=== PATIENT | female | born 1980 | race Caucasian/White ===

== ENCOUNTER 2021-10-16 10:32 | Outpatient (CLI) | payer BC, SELFPAY ==
--- OUTSIDE RECORDS SUMMARY | 2021-10-16 10:34 | XMS_ITS | Encounter Summary ---
:1980 Author Organization [facility] Address [address] [place] [address] Care Team Providers Name Role Phone Unavailable Primary Care Provider Unavailable Reason for Visit Appointment Request (Routine) - Closed Specialty Diagnoses / Procedures Referred By Contact Refer red To Contact Preventive Medicine Diagnoses COVID-19 Infection Referral ID Status Reason Start Date Expiration Date Visits Requ ested Visits Authorized [id number] Closed 03/01/2020 03/01/2021 1 1 Encounter Details Date Type Department Care Team Description 03/26/2020 Telemedicine Section of Preventive, Champ Weaver P ersonal History Of Infectious And Parasitic Disease (COVID-19) (Primary Dx); Transportation and M.D. Fatigue P ost Viral Occupational Medicine in [place], [place] [address] [place] [address] Social History Tobacco Use Types Packs/Day Years Used Date Smoking Tobacco: Never Assessed Alcohol Habits Answer Date Recorded How often do you have a drink containing alcohol? 2-4 times a month 03/25/2020 How many drinks containing alcohol do you have on a 1 or 2 03/25/2020 typical day when you are drinking? How often do you have six or more drinks on one Never 03/25/2020 occasion? Comment: Not asked Social Isolation Answer Date Recorded In a typical week, how many times do you More than three love es a week 03/25/2020 talk on the phone with family, friends, or neighbors? How often do you get together with friends Three times a wee k 03/25/2020 or relatives? How often do you attend amish or More than 4 times per year 03/25/2020 restorationism services? Do you belong to any clubs or Yes 03/25/2020 organizations such as amish groups, unions, fraternal or athletic groups, or school groups? How often do you attend meetings of the More than 4 times pe r year 03/25/2020 clubs or organizations you belong to? Are you now , , , 03/25/2020 , never or living with a partner? Physical Activity Answer Date Recorded On average, how many days per week do you engage in moderate to 5 days 03/25/2020 strenuous exercise (like walking fast, running, jogging, dancing, swimming, biking, or other activities that cause a light or heavy sweat)? On average, how many minutes do you engage in exercise at th is 30 min 03/25/2020 level? Stress Answer Date Recorded Do you feel stress - tense, restless, nervous, or anxious, N ot at all 03/25/2020 or unable to sleep at night because your mind is troubled all the time - these days? Financial Resource Strain Answer Date Recorded How hard is it for you to pay for the very basics like Not h josefa at all 03/25/2020 food, housing, medical care, and heating? Food Insecurity Answer Date Recorded Within the past 12 months, you worried that your food would Never true 03/25/2020 run out before you got money to buy more. Within the past 12 months, the food you bought just didn't N ever true 03/25/2020 last and you didn't have money to get more. Transportation Needs Answer Date Recorded In the past 12 months, has lack of transportation kept you f rom No 03/25/2020 medical appointments or from getting medications? In the past 12 months, has lack of transportation kept you f rom No 03/25/2020 meetings, work, or getting things needed for daily living? Education Answer Date Recorded What is the highest level of school Master's degree (e.g., M A, MS, 03/25/2020 you have completed or the highest Katya, MEd, ELECTRIC MOTOR REPAIR SUPERVISOR, RICH) degree you have received? Sex Assigned at Date Recorded Not on file documented as of this encounter Consult Notes Champ Weaver M.D. - 03/26/2020 1:30 PM CST This visit was conducted via telemedicine audio/video link from my office at [facility] to her home as part of the COVID-19 practice modifications. 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 Worked in the [employer] in a similar position prior to that. COVID HISTORY: She reports good general health, no medication. Previously active woman enjoying hiking, cross-country skiing, outside activities. HPI: Symptom onset 01/12 with fevers, chills, aches, pronounced fatigue, loss of taste and smell resolved within a week. Poor sleep despite the fatigue. Persistence of myalgia and profound fatigue for 3 weeks-unable to work. Began to note some tingling/heaviness in the arms and fingers toward the middle of the day and with fatigue at the end of the day she began to note substernal achiness followed by chest wall achiness in the medial pectoral region bilaterally. This was not associated with shortness of breath, presyncope, or palpitations that she was aware of. She did appropriately seek evaluation in the emergency room where they did a cardiopulmonary workup for cardiac etiology-EKG, troponins, and pulmonary CT angiography for PE. The only abnormality noted in the emergency room was a creatinine of 1.6. She does not recall that she was dehydrated at the time. She started an aspirin a day, continued good self-care including sleep (now wakes up feeling rested), healthy diet, continuing aspirin daily (325 mg), vitamin-D. Started back to work week 4. 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 This similarly seem to occur later in the day. She was able to carryout all of her work tasks appropriately but noted significant inefficiency with cognitively demanding tasks late in the day. She subsequently saw her primary care physician who repeated her creatinine and noted that it was now normal. Now, approximately 10 weeks post positive test she is getting very slowly better. Her primary symptoms now include fatigue beyond expected, mild brain fog toward the end of the day, muscle fatigue toward the end of the day, and the chest symptoms although they are a bit better. Overall she feels as though she is about 90% better. Her biggest concern is the chest symptoms and whether her body may have sustained some permanent damage. It is easier now for her to complete her work day, though she does have the muscular symptoms toward the end of the day and a little wor sening of the brain fog. Her chest symptoms seem to be more muscular fatigue than the result of cardiac demand. She has not noted racing heart, palpitations, orthostatic symptoms, or notable dyspnea on exertion. With regard tothe brain fog she is noting gradual improvement in that as well. Muscle fatigue seems to be a prominent persistent symptom. Answers for HPI/ROS submitted by the patient on 03/25/2020 Fatigue: Yes No eye issues: Yes No ENT issues: Yes Chest pain, pressure or tightness: Yes No respiratory issues: Yes No GI issues: Yes Muscle pain/stiffness: Yes No skin issues: Yes No neurologic issues: Yes No mental health issues: Yes No blood/lymph issues: Yes No urinary/reproductive issues: Yes FUNCTIONAL HISTORY: Post COVID Scale: Description Score Patient Assignment I suffer from severe limitations in my everyday life: I am not able to take care of myself and therefore I am dependent on nursing care and/or assistance from another person due to symptoms, pain, depression or anxiety. 4 I suffer from limitations in my everyday life as I am not able to perform all usual duties/activities due to symptoms, pain, depression or anxiety. I am, however, able to take care of myself without any assistance. 3 I suffer from limitations in my everyday life as I occasionally need to avoid or reduce usual duties/activities or need to spread these over time due to symptoms, pain, depression or anxiety. I am, however, able to perform all activities without any assistance. 2 I have negligible limitations in my everyday life as I can perform all usual duties/activities, although I still have persistent symptoms, pain, depression or anxiety. 1 X I have no limitations in my everyday life and no symptoms, pain, depression or anxiety related to the infection. 0 OBJECTIVE Gen: Alert, calm, cooperative. Thoughtful, responds clearly and appropriately to questions. Maintains good eye contact. Psych: No abnormalities with speech, memory, or concentration. Mood appears good. Affect full and appropriate. Skin: No pallor or cyanosis detected. Res: No audible wheezing or dyspnea. No tachypnea. ASSESSMENT / PLAN #1 Post COVID syndrome with persistent symptomatology at approximately 10 weeks We discussed our best general understanding of what is going on with body. She astutely notes that her muscular symptoms are probably a combination of deconditioning and post COVID symptoms. I agree. The return of her labs to normal, and a negative cardiac evaluation in the ED are reassuring. We discussed that this is probably the tail end of a post viral inflammatory process. Recommendation: We discussed that it is reasonable to continue her aspirin daily and supplement for 3 months or so post infection, especially in light of the fact that she still has some symptoms. Her supplement seem reasonable. We discussed the a good healthy diet also supplies nutrients in anti oxidents. She is getting adequate sleep and awakening rested. She is maintaining his circadian rhythm. She is gradually increasing her physical demands. We discussed rehab goals of sub maximal exercise, avoiding exhaustion, and working all the major muscle groups and we discussed simple exercises that she can do at home. If her symptoms are not improving after another 4 weeks or the change in character and worsen, recommend that she get back in touch with this and I would refer her to the specific specialist. We discussed things like cognitive testing and MRI of the brain but in people who are functioning at her level I have not found it to be helpful. Pt wishes to pursue local treatment options with our advice but would consider coming for visit if symptoms persist or worsen. I shared with the patient the treatment philosophy of our physical therapy based rehabilitation program. Specifically, I recommended gradual, paced increases in activity rather than pushing himself toohard. Based on her slope of recovery I told her that I anticipate she will gradually return to normal and that it is unlikely she has any worrisome damage to her organ systems. She has not had significant respiratory symptoms which is also good. She does not seem to have POTS like symptoms either. I discussed with her that if I run across any interesting new articles I will send them her way her email is [email or web address] below are some references from late summer/early fall. References: 1. SUNDEEP Johnson, O LYDIA, GAIL S, et al. The consensus statement for eoah-APSQP-77 rehabilitation. [place] journal of sports medicine. 2019Oct 2019;54(16)doi:10.1136/[id number] 2. Carpenter TJ, Sanchez B, Jasbir M, Matteo GT, Charis N, J Luis S. Physical Medicine and Rehabilitation and Pulmonary Rehabilitation for COVID-19. Am J Phys Med Rehabil. 2019;99(9):769-774. doi:10.1097/PHM.[id number] 3. GABY S. Considerations for Postacute Rehabilitation for Survivors of COVID-19. [facility] public health and surveillance. 07/15/20192019;6(2)doi:10.2196/15163 4. Wesley PM, Santosh SL, Elke R, et al. Respiratory follow-up of patients with COVID-19 pneumonia. Thorax. Oct 2019;doi:10.1136/[id number] Total time 30 minutes in direct aozp-fk-gnne, additional time in documentation. No barriers to communication identified. ATION SPECIALIST documented in this encounter Plan of Treatment Not on filedocumented as of this encounter Visit Diagnoses Diagnosis Personal History Of Infectious And Sharath itic Disease (COVID-19) - Primary Fatigue Post Viral documented in this encounter
--- OUTSIDE RECORDS SUMMARY | 2021-10-16 10:34 | XMS_ITS | Clinical Summary ---
:1980 Author Organization [facility] Address [address] [place] [address] Care Team Providers Name Role Phone Unavailable Primary Care Provider Unavailable Source Comments Patient records contain information from all sites at [facility]. For routine questions regarding patient records, call [phone] during business hours, M-F 8:00 AM - 5:00 PM Central Time. Record requests for emergency care only can be directed to [phone] at any time.[facility] Active Problems Problem Noted Date Fatigue Post Viral 03/26/2020 Personal History Of Infectious And Parasitic Disease ( COVID-19) 03/26/2020 Social History Tobacco Use Types Packs/Day Years [...] or relatives? How often do you attend restorationism or More than 4 times per year 03/25/2020 christian services? Do you belong to any clubs or Yes 03/25/2020 organizations such as restorationism groups, unions, fraternal or athletic groups, or [...] have completed or the highest Katya, MEd, TIRE BALANCER, RICH) degree you have received? Sex Assigned at Date Recorded Not on file Plan of Treatment Health Maintenance Due Date Last Done Comments Fasting Lipid Panel 1980 HIV Screening 1980 Hepatitis C Screening 1980 Mammogram 1980 Depression Screening 03/09/2021 (Annual PHQ-2) Cervical Cancer Screening 03/30/2021 03/30/2018 Influenza Vaccine (#1) 2022 12/05/2020, 12/14/2019, 12/08/2018, Additional history exists DTaP,Tdap,and Td Vaccines 08/18/2029 08/19/2019, 12/10/2011 , (10 - Td or Tdap) 04/17/2009, Additional history exists Hepatitis B Vaccines Completed 10/03/1992, 05/19/1992, 03/30/1992 COVID-19 Vaccine Completed 03/14/2021, 04/03/2020, 03/13/2020 Pneumococcal vaccine (0-64 Aged Out No lo nger eligible years) based on patient 's age to complete this topic Insurance Payer Benefit Plan / Subscriber ID Effective Dates Phone Addre ss Type Group [facility] [id number] 2018-Prese [phone] [id number] [facility] [address] [place] [address] (Home) [place] [address]
--- NOTE | 2021-10-16 10:45 | CRLHL7_ITS ---
For Patients: As a result of the Cures Act, medical imaging exams and procedure reports are released immediately into your electronic medical record. You may view this report before your referring provider. If you have questions, please contact your health care provider. BILATERAL DIAGNOSTIC MAMMOGRAM WITH COMPUTER-AIDED DETECTION AND TOMOSYNTHESIS CLINICAL HISTORY: LEFT breast lump. COMPARISON: 11/27/2020, 09/13/2019. TECHNIQUE: Digital BILATERAL mammogram in 4 projections. Computer-aided detection and tomosynthesis were used. Real-time ultrasound imaging of LEFT breast with imaging documentation. BREAST COMPOSITION: The breasts are extremely dense, which lowers the sensitivity of mammography FINDINGS: 3D CC and 3D MLO mammograms submitted BILATERALLY. Ovoid density upper-outer quadrant LEFT breast. Benign calcifications BILATERALLY. No architectural distortion or adenopathy. Targeted LEFT breast ultrasound in the area of concern performed 3 o`clock 3 cm from the nipple. In this location there is a simple circumscribed anechoic cyst with increased through transmission corresponding with the mammographic findings measuring 1.1 x 1.5 x 1.5 cm. IMPRESSION: Simple cyst LEFT breast 3 o`clock 3 cm from the nipple measuring 1.5 cm. No evidence of malignancy. RECOMMENDATIONS: Annual bilateral screening mammography. BI-RADS Category 2: Benign Results and recommendations discussed with the patient. Dictated by Malik Holcomb MD @ 10/16/2021 11:33:46 AM/kemar ROSS/Dictated by: Malik Holcomb MD @ 10/16/2021 11:33:00 AM (Electronically Signed)
--- NOTE | 2021-10-16 11:15 | CRLHL7_ITS ---
For Patients: As a result of the Century Cures Act, medical imaging exams and procedure reports are released immediately into your electronic medical record. You may view this report before your referring provider. If you have questions, please contact your health care provider. PLEASE SEE BILATERAL DIAGNOSTIC MAMMOGRAM OF SAME DAY. CRL:kemar CODY/Dictated by: Malik Holcomb MD @ 10/16/2021 11:33:00 AM (Electronically Signed)
== END 2021-10-16 10:33 | disposition home or self-care (01) ==
LOC: MAMMO 10:32
PROVIDERS: PCP Family Medicine; Visit Provider Family Medicine
DX: N63.20 Unspecified lump in the left breast, unspecified quadrant (principal); N60.02 Solitary cyst of left breast
CPT/HCPCS: 76642; 77066; G0279

== ENCOUNTER 2022-11-04 14:58 | Outpatient (CLI) | payer BC, SELFPAY ==
--- NOTE | 2022-11-04 15:00 | CRLHL7_ITS ---
For Patients: As a result of the Cures Act, medical imaging exams and procedure reports are released immediately into your electronic medical record. You may view this report before your referring provider. If you have questions, please contact your health care provider. BILATERAL SCREENING MAMMOGRAM WITH COMPUTER-AIDED DETECTION AND TOMOSYNTHESIS TECHNIQUE: CC and MLO views were obtained. These mammographic images have been obtained using full-field digital technique. These mammographic images were interpreted with the benefit of computer-aided detection. Breast Tomosynthesis was used in this interpretation. COMPARISON FILM: 10/16/21, 11/27/20, 09/23/19. FINDINGS: The breasts are extremely dense, which lowers the sensitivity of mammography IMPRESSION: There is no radiographic evidence for malignancy. ASSESSMENT: BI-RADS Category 2: Benign RECOMMENDATION: Routine screening mammogram in 1 year. A lay language report of this examination will be provided to the patient. Malik Holcomb M.D. Diagnostic Radiologist [email or web address] JERICHO/maria del carmen Transcribed: 3:10 p.muan joyce/Dictated by: Malik Holcomb MD @ 11/05/2022 12:09:00 PM (Electronically Signed)
== END 2022-11-04 14:59 | disposition home or self-care (01) ==
LOC: MAMMO 14:59
PROVIDERS: PCP Family Medicine; Visit Provider Family Medicine
DX: Z12.31 Encounter for screening mammogram for malignant neoplasm of breast (principal); R92.2 Inconclusive mammogram
CPT/HCPCS: 77063; 77067

== ENCOUNTER 2023-05-06 07:50 | Outpatient (CLI) | payer BC, SELFPAY | END 2023-05-06 07:51 | disposition home or self-care (01) | LOC: NFLDREF 05-15 14:42 | PROVIDERS: PCP Family Medicine; Referring Provider Family Medicine; Visit Provider Family Medicine | DX: E78.5 Hyperlipidemia, unspecified (principal); Z13.9 Encounter for screening, unspecified | CPT/HCPCS: 80053; 80061 ==

== ENCOUNTER 2024-04-12 18:09 | Outpatient (CLI) | payer BC, SELFPAY ==
--- NOTE | 2024-04-12 18:20 | CRLHL7_ITS ---
For Patients: As a result of the Century Cures Act, medical imaging exams and procedure reports are released immediately into your electronic medical record. You may view this report before your referring provider. If you have questions, please contact your health care provider. BILATERAL SCREENING MAMMOGRAM WITH COMPUTER-AIDED DETECTION AND TOMOSYNTHESIS TECHNIQUE: CC and MLO views were obtained. These mammographic images have been obtained using full-field digital technique. These mammographic images were interpreted with the benefit of computer-aided detection. Breast Tomosynthesis was used in this interpretation. COMPARISON FILM: 10/15/22, 10/16/21, 11/27/20. FINDINGS: The breasts are extremely dense, which lowers the sensitivity of mammography IMPRESSION: There is no radiographic evidence for malignancy. ASSESSMENT: BI-RADS Category 2: Benign RECOMMENDATION: Routine screening mammogram in 1 year. A lay language report of this examination will be provided to the patient. Malik Holcomb M.D. Diagnostic Radiologist [email or web address] EJRICHO/maria del carmen Transcribed: 3:06 p.muna joyce/Dictated by: Malik Holcomb MD @ 04/13/2024 10:45:00 AM (Electronically Signed)
== END 2024-04-12 18:10 | disposition home or self-care (01) ==
LOC: MAMMO 18:10
PROVIDERS: PCP Family Medicine; Visit Provider Family Medicine
DX: Z12.31 Encounter for screening mammogram for malignant neoplasm of breast (principal); R92.343 Mammographic extreme density, bilateral breasts
CPT/HCPCS: 77063; 77067

== ENCOUNTER 2024-07-12 07:31 | Outpatient (CLI) | payer BC, SELFPAY | END 2024-07-12 07:32 | disposition home or self-care (01) | LOC: NFLDREF 07-17 05:07 | PROVIDERS: PCP Family Medicine; Referring Provider Family Medicine; Visit Provider Family Medicine | DX: Z00.00 Encounter for general adult medical examination without abnormal findings (principal); Z13.228 Encounter for screening for other metabolic disorders; Z13.6 Encounter for screening for cardiovascular disorders | CPT/HCPCS: 80053; 80061 ==